=== PATIENT | female | born 1975 | race Caucasian/White ===

== ENCOUNTER 2024-12-08 13:39 | Outpatient (CLI) | payer BC, SELFPAY ==
--- NOTE | 2024-12-08 13:45 | MR_ITS ---
EXAM: MRI OF THE LEFT ANKLE WITHOUT CONTRAST CLINICAL INFORMATION: Female, 49 years old, with left ankle pain. INDICATION: Evaluate ankle pain. PRIOR SURGERY: None reported. PLAIN FILMS: None available. COMPARISONS: No prior MRIs available. TECHNICAL INFORMATION: Using a 1.5T MR scanner and a localizing surface coil: sagittals: PD, T2, STIR coronals: PD, T2FS axials: PD, T2FS, PDFS oblique SEDATION: None. CONTRAST: None. FINDINGS: Osseous structures: No stress/occult fracture or other marrow edema/pathology. Mild-moderate pes planovalgus alignment. Os trigonum: 1.8 x 1.7 cm os trigonum, with moderate surrounding soft tissue edema (sagittal STIR series 5 image 16 and coronal PD series 8 image 23). Tarsal coalition: No calcaneonavicular, talocalcaneal or cubonavicular coalition. Tibiotalar joint: Effusion: Mild tibiotalar joint effusion. Ganglion cyst: None. Osteochondral surfaces: Chondral thinning and osteophytosis throughout the tibiotalar joint. Loose bodies: No demonstrable loose bodies. Subtalar joint: Effusion: Physiologic. Articular cartilage: No osteochondral abnormality. However, there is moderate narrowing of the talus and calcaneus at the angle of Gissane, with reactive osseous changes (sagittal STIR series 5 image 18). There is also mild subfibular impingement (coronal T2FS series 9 image 18). Tarsal joints: Talonavicular: Unremarkable. Calcaneocuboid: Unremarkable. Naviculocuneiform: Unremarkable. Tarsometatarsal: Unremarkable. Ligaments: Syndesmotic ligaments:?The anterior and posterior inferior tibiofibular syndesmotic ligaments are intact, but mildly-moderately attenuated and irregular in appearance (axial PD series 3 image 13) Lateral ligaments:?Marked attenuation and irregularity anterior talofibular and calcaneofibular ligaments (axial PD series 3 images 17-21). Deltoid ligament:?The visualized components of the superficial and deep deltoid ligament, specifically the tibiospring and posterior tibiotalar ligaments, are intact, mildly thickened and irregular in appearance. Calcaneonavicular spring ligament:?The superomedial component of the calcaneonavicular spring ligament is grossly intact. Bifurcate and calcaneocuboid ligaments:?Intact lateral calcaneonavicular and medial calcaneocuboid ligaments. The dorsolateral calcaneocuboid ligament is intact. Tendons: Peroneal:?The peroneal tendons are laterally displaced at the lateral malleolus (axial PD series 3 image 16). Mild-moderate peroneus brevis tendinopathy with near full-thickness longitudinal splitting over a length of 3.0 cm (axial PD series 3 images 14-21). Peroneus longus is unremarkable. Flexor tendons:?Moderate posterior tibialis tendinopathy with partial-thickness tearing from the level of the talar head to the posterior aspect of the medial malleolus overlying of 5.0 cm, with small fragments of the tendon (sagittal PD series 3 images 9-22). Flexor hallucis longus and flexor digitorum lungs are intact, without tendinopathy or tear. Extensor tendons:?The anterior tibialis, extensor digitorum longus, and extensor hallucis longus tendons are intact. No significant tendinopathy and without tenosynovitis, tendon split or tendon disruption. Achilles:?Intact, without tendinopathy or tear. No retrocalcaneal or retro- Achilles bursitis. Sinus tarsi:?The sinus tarsi signal demonstrates moderate marked soft tissue edema and thickening throughout the tarsal sinus (sagittal PD series 6 and sagittal STIR series 5 images 14-18). Plantar aponeurosis: There is no abnormal thickening of, abnormal intrasubstance signal involving, or perifascial edema about the plantar aponeurosis. Specifically, the plantar fascia origin appears normal in signal intensity and morphology. Plantar musculature:?The intrinsic foot musculature is normal in bulk and signal intensity without evidence of denervation atrophy. Neurovascular structures and tarsal tunnel: The posterior tibial neurovascular structures appear unremarkable coursing past the ankle and through the tarsal tunnel. IMPRESSION: 1. Lateral displacement of the peroneal tendons at the lateral malleolus, in keeping with disruption of the superior peroneal retinaculum. This associated with mild/moderate peroneus brevis tendinopathy and near full thickness longitudinal splitting over a length of 3.0 cm. 2. Moderate posterior tibialis tendinopathy with intermediate grade partial- thickness tearing from the posterior aspect of the medial malleolus to the level of the talar head over a length of 5.0 cm. 3. Chronic sequela of an [id number] lateral ligamentous sprain injury. 4. Chronic sequela of a low-grade/incomplete sprain of the anterior and posterior inferior tibiofibular ligaments. 5. Finding keeping with sinus tarsi syndrome. 6. Mild-moderate degenerative changes between the talus and calcaneus at the angle of Gissane, in keeping with extra-articular lateral hindfoot impingement. There are also mild findings of subfibular impingement. 7. Mild-moderate pes planovalgus alignment. 8. 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 BC Electronically signed on 12/11/2024 1:09:00 PM by Edy Valenzuela M.D.
== END 2024-12-08 13:40 | disposition home or self-care (01) ==
LOC: MRI 13:40
PROVIDERS: Visit Provider Physician Assistant
DX: M25.572 Pain in left ankle and joints of left foot (principal); S93.492A Sprain of other ligament of left ankle, initial encounter; S93.492S Sprain of other ligament of left ankle, sequela; S93.432S Sprain of tibiofibular ligament of left ankle, sequela; M25.872 Other specified joint disorders, left ankle and foot
CPT/HCPCS: 73721

== ENCOUNTER 2025-02-19 15:30 | Outpatient (RCR) | payer BC, SELFPAY | END 2025-06-19 23:59 | disposition home or self-care (01) | PROVIDERS: Visit Provider Orthopaedic Surgery | DX: M76.821 Posterior tibial tendinitis, right leg (principal); M76.822 Posterior tibial tendinitis, left leg; M21.40 Flat foot [pes planus] (acquired), unspecified foot; M25.572 Pain in left ankle and joints of left foot; M25.571 Pain in right ankle and joints of right foot; Z51.89 Encounter for other specified aftercare | CPT/HCPCS: 97110; 97161 ==